=== PATIENT | female | born 1985 | race African-American/Black ===

== ENCOUNTER 2017-11-17 14:22 | Emergency (ER) | payer MEDICAID ==
[~2017-11-17] VITALS: Ht 157.5 cm; Wt 60.8 kg
[2017-11-17 14:28] VITALS: BP 126/73
--- NOTE | 2017-11-17 14:36 | NUR ---
PT AMBULATED TO BED 2
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
[2017-11-17] MEDS ORDERED: IBUPROFEN 800 MG TAB PO ONE (15:15)
--- NOTE | 2017-11-17 15:23 | NUR ---
pt to xray via w/c accompanied by projection technician
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
--- NOTE | 2017-11-17 15:53 | NUR ---
Patient also given bus pass.
[2017-11-17 15:54] VITALS: BP 124/75
== END 2017-11-17 15:53 | disposition home or self-care (01) ==
LOC: MED 14:22
DX: S01.511A Laceration without foreign body of lip, initial encounter (principal); E11.9 Type 2 diabetes mellitus without complications; Y04.2XXA Assault by strike against or bumped into by another person, initial encounter; Y93.89 Activity, other specified; Y92.89 Other specified places as the place of occurrence of the external cause; Y99.8 Other external cause status
CPT/HCPCS: 70110; 99284